=== PATIENT | male | born 1995 | race Caucasian/White ===

== ENCOUNTER 2018-06-21 22:04 | Emergency (ER) | payer OTHER ==
[2018-06-22] MEDS ORDERED: LIDOCAINE 1%/EPINEPHRINE INJ 20 ML VIAL INJ ONE (00:30)
--- NOTE | 2018-06-22 00:33 | ER Document Report ---
ED General - General Chief Complaint: Laceration Stated Complaint: LEFT THUMB LACERATION Time Seen by Provider: 06/22/18 00:04 Notes: Patient is a 23-year-old male without chronic medical problems, up-to-date on immunizations who presents after sustaining a 2 cm laceration over the dorsal aspect of his left thumb while sharpening his knife. Patient states that the blade slipped and cut his thumb. Notes a throbbing, aching, constant pain to the area. Moving the thumb worsens the pain. Nothing improves the pain. No history of similar injuries in the past. Denies any limited range of motion of the left hand. He is right-hand dominant. He did not sustain any additional injuries during today's events. Has not seen his primary care doctor regarding today's concerns. TRAVEL OUTSIDE OF THE [place] IN LAST 30 DAYS: No Past Medical History - General Information source: Patient - Social History Smoking Status: Never Smoker Chew tobacco use (# tins/day): Yes Frequency of alcohol use: Occasional Drug Abuse: None Lives with: Spouse/Significant other Family History: Reviewed & Not Pertinent Patient has suicidal ideation: No Patient has homicidal ideation: No Renal/ Medical History: Denies: Hx Peritoneal Dialysis Review of Systems - Review of Systems Notes: Constitutional: Negative for fever. Eyes: Negative for visual changes. ENT: Negative for facial injury Cardiovascular: Negative for chest injury. Respiratory: Negative for shortness of breath. Gastrointestinal: Negative for abdominal injury. Genitourinary: Negative for genital injury Musculoskeletal: Negative for back injury. Skin: Positive for laceration/abrasions. Neurological: Negative for head injury. Physical Exam - Vital signs Vitals: Temp Pulse Resp BP Pulse Ox 98.2 F 58 L 16 132/61 H 97 06/21/18 22:18 06/21/18 22:18 06/21/18 22:18 06/21/18 22:18 06/21/18 22:18 Interpretation: Bradycardic Notes: PHYSICAL EXAMINATION: GENERAL: Well-appearing, well-nourished and in no acute distress. HEAD: Atraumatic, normocephalic. EYES: sclera anicteric, conjunctiva are normal. ENT: Moist mucous membranes. NECK: Normal range of motion LUNGS: Normal work of breathing HEART: 2+ radial pulses bilaterally, capillary refill less than 1 second in the left thumb EXTREMITIES: no pitting or edema. No cyanosis. Full flexion extension of the PIP and MCP of the left thumb including against resistance. NEUROLOGICAL: No focal neurological deficits. Moves all extremities spontaneously and on command. PSYCH: Normal mood, normal affect. SKIN: Warm, Dry, normal turgor, 2 cm horizontal laceration over the dorsal aspect of the base of the left thumb Course - Re-evaluation Re-evalutation: 06/22/18 00:31 Patient presents with a 2 cm laceration over the dorsal aspect of the base of the left thumb. Patient's tetanus is up-to-date. Wound was irrigated and closed without complication. Full flexion-extension at the PIP and MCP of the thumb including against resistance. No additional injuries were sustained. At this time will discharge with return precautions and follow-up recommendations. Verbal discharge instructions given a the bedside and opportunity for questions given. Medication warnings reviewed. Patient is in agreement with this plan and has verbalized understanding of return precautions and the need for primary care follow-up in the next 1 week. - Vital Signs Vital signs: Temp Pulse Resp BP Pulse Ox 98.2 F 58 L 16 132/61 H 97 06/21/18 22:18 06/21/18 22:18 06/21/18 22:18 06/21/18 22:18 06/21/18 22:18 Procedures - Laceration/Wound Repair Left Thumb Wound length (cm): 2 Wound's Depth, Shape: Superficial Laceration pre-procedure: Sterile PPE donned, Sterile drapes applied, Shur-Clens applied Anesthetic type: 1% Lidocaine w/epi Volume Anesthetic (mLs): 1 Wound explored: Contaminated Irrigated w/ Saline (mLs): 1,000 Wound Debrided: Minimal Wound Repaired With: Sutures Suture Size/Type: 5:0, Prolene Number of Sutures: 3 Post-procedure wound care: Sterile dressing applied Post-procedure NV exam normal: Yes Complications: No Discharge - Discharge Clinical Impression: Laceration of left thumb Qualifiers: Encounter type: initial encounter Damage to nail status: without damage Foreign body presence: without foreign body Qualified Code(s): S61.012A - Laceration without foreign body of left thumb without damage to nail, initial encounter Condition: Good Disposition: HOME, SELF-CARE Additional Instructions: Please return to your primary doctor, the ED, or an urgent care in 7 days for suture removal. Return immediately if you develop spreading redness around the wound, pus from the wound, worsening pain, or a fever of >100.4. Keep the area clean and dry. Wash gently with soap and water twice daily and cover with antibiotic ointment.
[2018-06-22] MEDS: IBUPROFEN 600 MG TABLET PO ONE ×2 (01:44→01:48)
[2018-06-22 01:49] VITALS: BP 113/67
== END 2018-06-22 01:49 | disposition home or self-care (01) ==
LOC: ER 22:04
DX: S61.012A Laceration without foreign body of left thumb without damage to nail, initial encounter (principal); W26.0XXA Contact with knife, initial encounter; Y93.89 Activity, other specified; R00.1 Bradycardia, unspecified
CPT/HCPCS: 99282; 12001; J3490

== ENCOUNTER 2019-08-12 21:10 | Emergency (ER) | payer OTHER ==
[2019-08-12] MEDS ORDERED: DEXAMETHASONE SOD PHOS INJ 10 MG/1 ML VIAL IV ONE (23:26)
[2019-08-12] MEDS ORDERED: NORMAL SALINE 1000 ML 1,000 ML IV ONE (23:26)
[2019-08-12] MEDS ORDERED: ACETAMINOPHEN 325 MG TABLET PO ONE (23:26)
[2019-08-12] MEDS ORDERED: KETOROLAC TROMETHAMINE INJ/PF 30 MG/1 ML SDV IV ONE (23:26)
--- NOTE | 2019-08-12 23:28 | ER Document Report ---
ED General - General Chief Complaint: Shortness Of Breath Stated Complaint: SHORTNESS OF BREATH Time Seen by Provider: 08/12/19 22:57 Notes: Patient is a 24-year-old male that comes emergency department for chief complaint of sore throat, body aches, weakness, cough, shortness of breath, fever. He states he can only stand for a very short period of time. Symptoms started today. Patient does report that he is [place] at [employer] and has had a very large number of exposures to students and trainees recently with multiple sick exposures as well. He denies vomiting, diarrhea, abdominal pain. He denies recent travel. He denies smoking, recreational drugs, any daily medications, or surgical history other than tonsillectomy. TRAVEL OUTSIDE OF THE [place] IN LAST 30 DAYS: No - Related Data Allergies/Adverse Reactions: No Known Allergies Allergy (Unverified 08/12/19 22:01) Past Medical History - General Information source: Patient - Social History Smoking Status: Never Smoker Frequency of alcohol use: Occasional Drug Abuse: None Lives with: Alone Family History: Reviewed & Not Pertinent Patient has suicidal ideation: No Patient has homicidal ideation: No - Medical History Medical History: Negative Renal/ Medical History: Denies: Hx Peritoneal Dialysis Past Surgical History: Reports: Hx Tonsillectomy - Immunizations Immunizations up to date: Yes Hx Diphtheria, Pertussis, Tetanus Vaccination: Yes Review of Systems - Review of Systems Constitutional: See HPI EENT: See HPI Cardiovascular: No symptoms reported Respiratory: See HPI Gastrointestinal: No symptoms reported Genitourinary: No symptoms reported Male Genitourinary: No symptoms reported Musculoskeletal: See HPI Skin: No symptoms reported Hematologic/Lymphatic: No symptoms reported Neurological/Psychological: No symptoms reported Physical Exam - Vital signs Vitals: Temp Pulse Resp BP Pulse Ox 100.1 F 95 22 H 134/85 H 97 08/12/19 21:46 08/12/19 21:46 08/12/19 21:46 08/12/19 21:46 08/12/19 21:46 - Notes Notes: GENERAL: Alert, interacts well. Patient is flushed and slightly ill-appearing HEAD: Normocephalic, atraumatic. EYES: Pupils equal, round, and reactive to light. Extraocular movements intact. ENT: Oral mucosa moist, tongue midline. Oropharynx erythematous but no tonsils are noted. Uvula normal. Airway patent. Nares patent, sinuses non-tender, ear canals unremarkable, TM's intact. NECK: Full range of motion. Supple. Trachea midline. Bilateral anterior cervical adenopathy which are tender and equal, unremarkable otherwise. LUNGS: Clear to auscultation bilaterally, no wheezes, rales, or rhonchi. Patient does have frequent coughing episodes. No respiratory distress or labored breathing. HEART: Regular rate and rhythm. No murmur ABDOMEN: Soft, non-tender. Non-distended. EXTREMITIES: Moves all 4 extremities spontaneously. No edema, normal radial and dorsalis pedis pulses bilaterally. No cyanosis. BACK: no cervical, thoracic, lumbar midline tenderness. No saddle anesthesia, normal distal neurovascular exam. Moves all extremities in full range of motion. NEUROLOGICAL: Alert and oriented x3. Normal speech. Cranial nerves II through XII grossly intact. Strength 5/5 in all extremities. PSYCH: Normal affect, normal mood. SKIN: Warm, dry, normal turgor. No rashes or lesions noted. Course - Re-evaluation Re-evalutation: Patient is somewhat ill-appearing, has an erythematous throat, anterior cervical adenopathy, frequent congested cough, but clear lungs. No hypoxia, no labored breathing or tachypnea, no respiratory distress. Temperature 100.1 on arrival. Chest x-ray is normal, influenza negative, strep is positive, coronavirus pendin g. CBC shows leukocytosis at 17,000 with elevation of neutrophils, chemistry unremarkable, CK is not significantly elevated. Patient was given IV fluids, Toradol, Decadron. Patient is improved in appearance and states he feels improved on reevaluation. Patient did have a cough, coronavirus is pending, I discussed the isolation precautions in detail and he will be provided with these details for home. Patient elected to have penicillin G IM here for treatment of strep pharyngitis. Discussed follow-up and return precautions. Patient states appreciation and agreement with plan. Stable and well-appearing at time of discharge. - Vital Signs Vital signs: Temp Pulse Resp BP Pulse Ox 98.2 F 73 16 118/65 97 08/13/19 02:00 08/13/19 02:00 08/13/19 02:00 08/13/19 02:00 08/13/19 02:00 - Laboratory Result Diagrams: 08/12/19 23:54 08/12/19 23:54 Laboratory results interpreted by me: 08/12/19 08/12/19 23:54 23:54 WBC 17.0 H Lymph % (Auto) 10.6 L Absolute Neuts (auto) 13.5 H Absolute Monos (auto) 1.6 H Seg Neutrophils % 79.6 H Sodium 136.9 L Creatine Kinase 208 H Discharge - Discharge Clinical Impression: Strep pharyngitis, Cough, Body aches Fever Qualifiers: Fever type: unspecified Qualified Code(s): R50.9 - Fever, unspecified Condition: Stable Disposition: HOME, SELF-CARE Additional Instructions: You have strep throat. This is a bacterial infection that appears to be the cause of your symptoms. Remaining work-up does not show any concerning findings. You have been treated with Decadron and with antibiotics, this completes your treatment, rest, drink plenty of fluids, symptoms should simply resolve. You can take ibuprofen and/or Tylenol if needed. Because of your sick symptoms along with the cough, you have also been tested for the coronavirus. See quarantine details below. Return if you develop any concerning symptoms including difficulty swallowing or breathing, or any other concerning or worsening symptoms. As a person under investigation for COVID-19, the [place] Department of Health and Human Services (divison on public health) advises you to adhere to the following guidance until your test results are reported to you. If your test result is positive, you will receive additional information from your provider and your local health department at that time. Remain at home until you are cleared by the health provider or public health authorities. Keep a log of visitors to your home, notify any visitors to your home of your isolation status. If you plan to move to a new address or leave the [facility], notify the local health department in your County. Call your Doctor or seek care if you have an urgent medical need. Before seeking medical care, call him to get instructions from the provider before arriving at the medical office, clinic, or hospital. Notify them that you are being tested for the virus (COVID-19) so that arrangements can be made, as necessary, to prevent transmission to others in the healthcare setting. Next, notify the local health department in your county. If a medical emergency arises and you need to call 911, inform the first responders that you are being tested for the virus that causes COVID-19. Next, notify the local health department in your county.
[2019-08-13 00:24] LABS: ABSOLUTE LYMPHOCYTES (AUTO) 1.8 10^3/uL (0.5-4.7); ABSOLUTE MONOCYTES (AUTO) 1.6 10^3/uL (0.1-1.4); ABSOLUTE NEUT (AUTO) 13.5 10^3/uL (1.7-8.2); BASOPHILS % (AUTO) 0.1 % (0-2); EOSINOPHILS % (AUTO) 0.2 % (0-6); HEMATOCRIT 40.9 % (37.9-51.0); HEMOGLOBIN 14.6 g/dL (13.5-17.0); LYMPHOCYTES % (AUTO) 10.6 % (13-45); MEAN CORPUSCULAR HEMOGLOBIN 31.7 pg (27.0-33.4); MEAN CORPUSCULAR HGB CONC 35.7 g/dL (32.0-36.0); MEAN CORPUSCULAR VOLUME 89 fl (80-97); MONOCYTES % (AUTO) 9.5 % (3-13); PLATELET COUNT 225 10^3/uL (150-450); RED BLOOD COUNT 4.61 10^6/uL (4.35-5.55); SEGMENTED NEUTROPHILS % (AUTO) 79.6 % (42-78); TOTAL CELLS COUNTED % (AUTO) 100 %
[2019-08-13 00:40] LABS: ALBUMIN 4.7 g/dL (3.5-5.0); ALKALINE PHOSPHATASE 68 U/L (38-126); ANION GAP 8 (5-19); ASPARTATE AMINO TRANSFERASE 37 U/L (17-59); BILIRUBIN,DIRECT 0.1 mg/dL (0.0-0.4); BILIRUBIN,TOTAL 0.7 mg/dL (0.2-1.3); BLOOD UREA NITROGEN 9 mg/dL (7-20); CALCIUM 9.6 mg/dL (8.4-10.2); CARBON DIOXIDE 25 mmol/L (22-30); CHLORIDE 104 mmol/L (98-107); CREATINE KINASE 208 U/L (55-170); GLUCOSE 106 mg/dL (75-110); TOTAL PROTEIN 7.6 g/dL (6.3-8.2)
[2019-08-13 00:41] LABS: A TYPE INFLUENZA AG NEGATIVE (NEGATIVE); B INFLUENZA AG NEGATIVE (NEGATIVE)
[2019-08-13] MEDS ORDERED: PENICILLIN G BENZATHINE 1.2 MILLION UNIT/2 ML DISP.SYRIN IM ONE (00:50)
[2019-08-13 01:15] VITALS: BP 118/65
--- NOTE | 2019-08-13 01:37 | RADIOLOGY REPORT (SQ) ---
EXAM DESCRIPTION: XR CHEST 1 VIEW COMPLETED DATE/TME: 08/12/2019 23:25 CLINICAL HISTORY: 24 years Male, shortness of breath COMPARISON: None. NUMBER OF VIEWS/TECHNIQUE: 1/AP FINDINGS: Adequate lung volume, clear parenchyma, normal cardiac silhouette, and intact bony thorax. IMPRESSION: No acute cardiopulmonary findings.
== END 2019-08-13 02:00 | disposition home or self-care (01) ==
LOC: ER 21:10
DX: J02.0 Streptococcal pharyngitis (principal); R50.9 Fever, unspecified; R05 Cough; R53.1 Weakness; R06.02 Shortness of breath; Z90.89 Acquired absence of other organs; Z20.828 Contact with and (suspected) exposure to other viral communicable diseases
CPT/HCPCS: 99285; 96372; 96361; 96374; 96375; 36415; 87880; 82550; 85025; 87635; 80053; 87804; 71045; J1885; J0561; J7030; J1100